=== PATIENT | female | born 1995 | race Caucasian/White ===

== ENCOUNTER 2024-03-15 10:02 | Emergency (ER) | payer BC, SELFPAY ==
[2024-03-15 10:04] VITALS: BP 152/103
[2024-03-15 10:43] VITALS: BP 120/77
[2024-03-15 11:00] VITALS: BP 123/83
[2024-03-15 11:15] VITALS: BMI 43.2
[2024-03-15 11:17] LABS: % Basophils 0.3 % (0-2); % Eosinophils 0.6 % (0-6); % Immature Granulocytes 0.4 % (0-0.5); % Lymphocytes 25.7 % (20.5-51.1); % Monocytes 6.3 % (1.7-9.3); % Neutrophils 66.7 % (42.2-75.2); Absolute Eosinophils 0.1 10^3/uL (0-0.7); Absolute Lymphocytes 2.6 10^3/uL (1.2-3.4); Absolute Monocytes 0.6 10^3/uL (0.1-0.6); Absolute Neutrophils 6.6 10^3/uL (1.4-6.5); Hematocrit 39.8 % (37.0-47.0); Mean Corp Hgb Conc. 32.7 g/dL (33.0-37.0); Mean Corpuscular Volume 82.6 fL (81.0-99.0); Mean Platelet Volume 9.6 fL (7.4-10.4); Nucleated Red Blood Cells % 0 %; Platelet Count 393 10^3/uL (130-400); Red Blood Cell Count 4.82 10^6/uL (4.20-5.40); Red Cell Dist. Width 13.2 % (11.5-14.5); White Blood Cell Count 9.9 10^3/uL (4.8-10.8)
[2024-03-15 11:28] LABS: ALT (SGPT) 18 U/L (0-35); AST (SGOT) 40 U/L (14-36); Albumin 3.9 g/dl (3.5-5.0); Alkaline Phosphatase 80 U/L (38-126); Blood Urea Nitrogen 11 mg/dl (7-17); Calcium 9.6 mg/dl (8.4-10.2); Carbon Dioxide 24 mmol/L (22-30); Chloride 106 mmol/L (98-107); Estimated Creatinine Clearance > 125 ml/min; Glucose 91 mg/dl (70-99); Potassium 4.4 mmol/L (3.5-5.1); Sodium 134 mmol/L (135-145); Total Bilirubin 0.2 mg/dl (0.2-1.3); Total Protein 6.8 g/dl (6.3-8.2); eGFR > 60.00
[2024-03-15 11:42] LABS: Troponin I < 0.012 ng/ml
[2024-03-15 12:00] VITALS: BP 120/72
[2024-03-15 12:25] LABS: D-Dimer 0.51 ug/mlFEU (0.00-0.50)
[2024-03-15 15:46] LABS: TSH Reflex To Free T4 1.68 uIU/ml (0.47-4.68)
[2024-03-15 17:11] LABS: HCG, Serum Qualitative Screen Negative
--- NOTE | 2024-03-15 17:11 | ED.GENMED ---
History of Present Illness
General
Chief Complaint: Heart Rate Problem
Source: patient and spouse
Exam Limitations: none
Time Seen by Provider: 03/15/24 11:11
Nursing documentation reviewed up to this point in time: agreed with
Travel History
Have you had any contact with someone who has COVID-19?: No
Do you have any symptoms of coronavirus? Fever > 100 degrees, chills, cough, shortness of breath, sore throat, loss of taste or smell, muscle aches, or headache?: No
History of Present Illness
History of Present Illness:
28-year-old female without significant past medical history presenting to the emergency department with concerns of palpitation starting yesterday ongoing today seems to be somewhat intermittent denies nausea vomiting diaphoresis or similar symptoms
in the past. No history of blood clots recent trauma surgery immobilization or leg swelling. Does take control pill that includes estrogen.
Review of Systems
Review of Systems
Allergies reviewed?: Yes
All Other Systems: ROS reviewed and negative except as documented in HPI and ROS
Phy Exam
Physical Exam
Physical Exam:
GENERAL: Alert , in no apparent distress
EYE: pupils equal and reactive
NECK: Supple, no significant adenopathy.
ENT: o/p clr, mmm.
CARDIAC: Regular rate and rhythm .
LUNGS: Clear breath sounds bilaterally, no acute respiratory distress, no wheezes/rales/rhonchi
ABDOMEN: Soft, without focal tenderness, no r/g, no cvat
NEUROLOGICAL: Alert and oriented, no focal neuro deficits
SKIN: Warm and dry, skin intact.
MUSCULOSKELETAL: No edema, well perfused.
PSYCH: Normal and appropriate interaction.
Course
Orders/Labs/Results
Orders:
Orders
03/15/24 10:15
Electrocardiogram (*1) Urgent
Reason for Study: Palpitations
03/15/24 10:16
EKG- Treatment ONCE
03/15/24 11:08
Cardiac Monitoring- Treatment ONCE
IV Insert/Care/Rem.- Treatment PRN
03/15/24 11:11
Complete Blood Count/With Diff Urgent
Comprehensive Metabolic Panel Urgent
HCG, Serum Qualitative Screen Urgent
Comment: HCG SERUM QUAL ADDED ON BY FLOOR 4:20PM 03-15-24
TSH Reflex To Free T4 Urgent
Troponin I Urgent
03/15/24 11:28
D-Dimer Urgent
03/15/24 12:24
Add On- LAB Urgent
Tests Added?: tsh free t4
Chest [CR Chest - 2 Views ] Urgent
Comment:
Reason For Exam: palpitations
03/15/24 14:[address] [CT Chest Pe Study] Urgent
Comment:
Reason For Exam: palpitations tachy
03/15/24 16:21
Add On- LAB Urgent
Tests Added?: HCG SERUM QUAL
Abnormal Lab Results
03/15/24 03/15/24
11:11 11:28
MCHC 32.7 L g/dL
(33.0-37.0)
Absolute Neuts (auto) 6.6 H 10^3/uL
(1.4-6.5)
D-Dimer 0.51 H ug/mlFEU
(0.00-0.50)
Sodium 134 L mmol/L
(135-145)
Creatinine 0.5 L mg/dL
(0.6-1.0)
AST 40 H U/L
(14-36)
03/15/24 11:11
03/15/24 11:11
Vital Signs
Initial and Last Documented VS:
Initial Vital Signs
Temp Pulse Resp BP Pulse Ox
97.8 F 121 20 152/103 97
03/15/24 10:04 03/15/24 10:04 03/15/24 10:04 03/15/24 10:04 03/15/24 10:04
Last Documented Vital Signs
Temp Pulse Resp BP Pulse Ox
97.8 F 105 19 120/72 97
03/15/24 10:04 03/15/24 17:15 03/15/24 17:15 03/15/24 12:00 03/15/24 17:15
MDM/Problems Addressed
MDM/Problems Addressed:
28-year-old female presenting to the emergency department today with concerns of palpitations since yesterday. Notes was inciting event no recent drug use or caffeine use. On arrival here heart rate initially in the 120s but during my assessment
in the low 100. Does take an estrogen product but denies any additional risk factors for PE. Considering we did not have any specific explanation for the tachycardia a dimer was drawn and elevated to 0.51. Otherwise labs unremarkable troponin
negative EKG without emergent features chest x-ray normal. CT PE was performed after discussion with the patient. Of note during the patient's stay she had a few episodes where she claimed to have the sensation of palpitations again. She was
found to have very infrequent PVCs that seem to correlate with patient's symptoms.
*Critical Care Note
Total Time (30-74mins, 75-104mins- exclusive of procedures): Not Applicable
ED Attending Note
-
Portions of this chart may have been created with voice recognition software.� Occasional wrong word or��sound alike� substitutions may have occurred due to the inherent limitations of voice recognition software.
Discharge Plan
Departure
Patient Disposition: Home (Routine Discharge)
Date of Disposition: 03/15/24
Time of Disposition: 18:20
Patient with high blood pressure during this ER visit?: No
Condition: Good
Covid-19: Not Applicable
Discharge Problem:
PVC (premature ventricular contraction), Palpitations
Instructions: Palpitations (DC)
Referrals:
Alberto Gibson MD [Active] - Follow up in 1 week
Brotzman,Rosemary O, DO [Family Provider] -
Activity Restrictions/Additional Instructions:
You came to the emergency department today with concerns of palpitations. You are found to have PVCs that seem to occur when you are having symptoms. This is likely what is causing your symptoms. Otherwise your workup here was very reassuring
with a normal CT scan of your chest as well as cardiac evaluation. Please go closely with cardiology for further assessment. Return to the emergency department for any worsening, new or concerning symptoms.
Interventions
Interventions:
*Risk Screen - Suicide Last Done: 03/15/24 11:15
*General Assessment Last Done: 03/15/24 11:15
*Neglect/Abuse Screening Last Done: 03/15/24 11:15
ED- Fall Risk Assessment Last Done: 03/15/24 11:15
*Nursing Disposition Last Done: 03/15/24 18:34
ED- Cardiac Assessment Last Done: 03/15/24 11:15
ED- Pulmonary Assessment Last Done: 03/15/24 11:15
Discharge Date and Time
Discharge Date/Time: 03/15/24 18:35
Print Language: DANISH
== END 2024-03-15 18:35 | disposition home or self-care (01) ==
LOC: EMR 10:02
PROVIDERS: Physician Assistant; EMERGENCY PHYSICIAN Emergency Medicine; FAMILY PHYSICIAN Family Medicine
DX: I49.3 Ventricular premature depolarization (principal); R00.2 Palpitations
CPT/HCPCS: 99285; 71046; 71275; 80053; 84443; 84484; 84703; 85025; 85379; 93005; Q9967